=== PATIENT | female | born 1975 | race Caucasian/White ===

== ENCOUNTER 2016-03-15 19:56 | Emergency (ER) | payer OTHER ==
[~2016-03-15] VITALS: Ht 154.9 cm; Wt 84.3 kg
[~2016-03-15 19:56] MED LIST: ATARAX,VISTARIL25 MG PO; DOXYCYCLINE HYC50 MG PO; KEFLEX500 MG PO; KLONOPIN0.5 M1 PO; MOBIC7.5 MG PO; MOTRIN800 MG PO; NAPROSYN500 MG PO; NAPROXEN500 MG PO; PREDNISONE10 M1 PO; PREDNISONE10 MG PO; PROZAC40 MG PO; ULTRAM50 MG PO; VISTARIL50 MG PO
[2016-03-15] MEDS ORDERED: DELTASONE20 M1 PO (22:06)
[2016-03-15] MEDS ORDERED: PROAIR HFA8.5 GM IH (22:06)
[2016-03-15] MEDS ORDERED: ZITHROMAX Z-PA250 MG PO (22:06)
[2016-03-15 22:13] VITALS: BP 126/74
== END 2016-03-15 22:15 | disposition home or self-care (01) ==
LOC: EXP 19:56 → EME 19:56 → EXP 22:15
DX: J40 Bronchitis, not specified as acute or chronic (principal); J02.9 Acute pharyngitis, unspecified; J34.89 Other specified disorders of nose and nasal sinuses
CPT/HCPCS: 71020; 94640; 99281; 99284; J7512

== ENCOUNTER 2016-03-28 11:21 | Emergency (ER) | payer OTHER ==
[~2016-03-28] VITALS: Ht 154.9 cm; Wt 85.5 kg
[~2016-03-28 11:21] MED LIST changes: +DELTASONE20 M1 PO; +PROAIR HFA8.5 GM IH; +ZITHROMAX Z-PA250 MG PO
[2016-03-28 14:32] VITALS: BP 118/87
== END 2016-03-28 14:57 | disposition home or self-care (01) ==
LOC: EME 11:21
DX: S61.211A Laceration without foreign body of left index finger without damage to nail, initial encounter (principal); W26.0XXA Contact with knife, initial encounter
CPT/HCPCS: 99281; 99284

== ENCOUNTER 2016-05-15 19:36 | Emergency (ER) | payer OTHER ==
[~2016-05-15] VITALS: Ht 154.9 cm; Wt 83.1 kg
[2016-05-15 21:17] VITALS: BP 143/92
== END 2016-05-15 21:18 | disposition home or self-care (01) ==
LOC: EME 19:36
DX: S83.91XA Sprain of unspecified site of right knee, initial encounter (principal); M25.561 Pain in right knee; G89.29 Other chronic pain; X58.XXXA Exposure to other specified factors, initial encounter
CPT/HCPCS: 73564; 99281; 99284

== ENCOUNTER 2016-11-06 13:44 | Emergency (ER) | payer BC ==
[~2016-11-06] VITALS: Ht 154.9 cm; Wt 82.3 kg
[2016-11-06 14:03] VITALS: BP 138/106
[2016-11-06] MEDS ORDERED: NAPROSYN500 MG PO (14:44)
[2016-11-06] MEDS ORDERED: PEN-VEE K,VEET500 MG PO (14:44)
== END 2016-11-06 14:58 | disposition home or self-care (01) ==
LOC: EME 13:44
PROC: 3E0T3BZ Introduction of Anesthetic Agent into Peripheral Nerves and Plexi, Percutaneous Approach (ICD-10-PCS; principal; 2016-11-06)
DX: K04.7 Periapical abscess without sinus (principal); S02.5XXA Fracture of tooth (traumatic), initial encounter for closed fracture; K02.9 Dental caries, unspecified
CPT/HCPCS: 99281; 99283

== ENCOUNTER 2017-03-30 11:17 | Emergency (ER) | payer BC ==
[~2017-03-30] VITALS: Ht 154.9 cm; Wt 82.7 kg
[~2017-03-30 11:17] MED LIST changes: +PEN-VEE K,VEET500 MG PO
[2017-03-30 12:29] LABS: HEMATOCRIT 44.9 % (36.0-46.0); MCH 31.9 PG (29.0-34.0); MCHC 35.6 G/DL (30.0-36.0); MCV 89.6 FL (83-99); PLATELET COUNT 210 K/uL (156-360); RBC DIS.WIDTH-CV 11.7 % (11.8-14.6); RBC DIS.WIDTH-SD 38.1 % (39-53); RED BLOOD COUNT 5.01 M/uL (3.80-5.20); WHITE BLOOD COUNT 6.8 K/uL (4.1-10.2)
[2017-03-30 12:37] LABS: ALBUMIN 4.3 g/dL (3.2-4.8)
[2017-03-30 12:38] LABS: CHLORIDE 102 mEq/L (99-109); POTASSIUM 3.8 mEq/L (3.7-5.4); SODIUM 140 mEq/L (136-147)
[2017-03-30 12:40] LABS: GLUCOSE 129 mg/dL (70-99); TOTAL PROTEIN 7.5 g/dL (6.4-8.3)
[2017-03-30 12:43] LABS: ALKALINE PHOSPHATASE 76 IU/L (3-129)
[2017-03-30 12:44] LABS: CREATININE 0.8 mg/dL (0.6-1.3); GFR ESTIMATE (CALCULATED) > 59 mL/min/
[2017-03-30 12:45] LABS: AST (GOT) 60 IU/L (2-34); UREA NITROGEN (BUN) 9 mg/dL (9-23)
[2017-03-30 12:47] LABS: ALT (GPT) 55 IU/L (3-49)
[2017-03-30 12:53] LABS: QUANTITATIVE HCG < 4.0 MIU/ML
[2017-03-30 14:24] LABS: APPEARANCE CLEAR ((CLEAR)); BILIRUBIN NEGATIVE; BLOOD NEGATIVE; COLOR YELLOW ((YELLOW)); GLUCOSE (STRIP) NEGATIVE; KETONES 5; LEUKOCYTES TRACE; NITRITE NEGATIVE; PROTEIN (STRIP) NEGATIVE; SPECIFIC GRAVITY 1.012 (1.000-1.030); UROBILINOGEN 0.2 MG/DL (0.2-1.0)
[2017-03-30 14:35] LABS: BACTERIA NONE SEEN /HPF; EPITHELIAL CELLS 2+ /HPF; MUCUS TRACE /LPF; RED BLOOD CELLS 0-5 /HPF (0-5); UCUL ADDED? NO; WHITE BLOOD CELLS 0-5 /HPF (0-5)
[2017-03-30] MEDS ORDERED: ZOFRAN ODT4 MG PO (14:59)
[2017-03-30 15:08] VITALS: BP 141/91
== END 2017-03-30 15:10 | disposition home or self-care (01) ==
LOC: EME 11:17
DX: R11.2 Nausea with vomiting, unspecified (principal); R19.7 Diarrhea, unspecified; R51 Headache
CPT/HCPCS: 80053; 81003; 84702; 85027; 87502; 99281; 99284; J1885; J2405; J7030